=== PATIENT | male | born 1995 | race Caucasian/White ===

== ENCOUNTER 2017-09-23 12:31 | Emergency (ER) | payer BC ==
[~2017-09-23] VITALS: Ht 180.3 cm; Wt 74.8 kg
[2017-09-23 12:37] VITALS: BP 164/80
== END 2017-09-23 13:24 | disposition home or self-care (01) ==
LOC: ER 12:34
DX: J06.9 Acute upper respiratory infection, unspecified (principal); R11.10 Vomiting, unspecified
CPT/HCPCS: A4606; Z7610

== ENCOUNTER 2017-10-12 15:31 | Emergency (ER) | payer BC ==
[~2017-10-12] VITALS: Ht 180.3 cm; Wt 76.2 kg
[2017-10-12 15:39] VITALS: BP 147/91
== END 2017-10-12 16:28 | disposition home or self-care (01) ==
LOC: ER 15:38
DX: B00.2 Herpesviral gingivostomatitis and pharyngotonsillitis (principal)
CPT/HCPCS: 99283; A4606; Z7610